=== PATIENT | female | born 1965 | race African-American/Black ===

== ENCOUNTER 2018-02-23 01:54 | Emergency (ER) | payer OTHER ==
[2018-02-23 05:29] VITALS: BP 123/88; PULSE 71; TEMP 98.1; BMI 36.6
--- NOTE | 2018-02-23 06:17 | PDOC ---
History of Present Illness - General Stated Complaint: PAIN,SWELLING,LT HAND Time Seen by Provider: 02/23/18 05:36 History Source: Patient Exam Limitations: No Limitations - History of Present Illness Initial Comments: 02/23/18 06:16 The patient is a 52F who presents with L wrist pain. The patient states that she was walking down the stairs 2 days ago and fell on her outstretched hands bilaterally. She also fell on her knees. She is currently complaining of a L lateral wrist pain and states that she has intermittent numbness in all of her fingertips. She denies any weakness. Past History - Past Medical History Allergies/Adverse Reactions: Allergies Allergy/AdvReac Type Severity Reaction Status Date / Time No Known Allergies Allergy Verified 02/23/18 05:27 COPD: No HTN: Yes - Suicide/Smoking/Psychosocial Hx Smoking History: Never smoked Have you smoked in the past 12 months: No Information on smoking cessation initiated: No Hx Alcohol Use: No Drug/Substance Use Hx: No Substance Use Type: None Review of Systems - Review of Systems Able to Perform ROS?: Yes Comments:: 02/23/18 06:21 GENERAL/CONSTITUTIONAL: No fever or chills. No weakness. CARDIOVASCULAR: No chest pain, palpitations, or lightheadedness. RESPIRATORY: No cough, wheezing, shortness of breath, or hemoptysis. MUSCULOSKELETAL: Positive for L wrist pain and swelling. SKIN: No rash or lesions. NEUROLOGIC: Positive for intermittent numbness in L fingers. No headache, tingling, focal weakness, loss of consciousness, or change in strength/ sensation. Is the patient limited [place]ian proficient: No *Physical Exam - Vital Signs Last Vital Signs Temp Pulse Resp BP Pulse Ox 98.1 F 71 18 123/88 98 02/23/18 05:27 02/23/18 05:27 02/23/18 05:27 02/23/18 05:27 02/23/18 05:27 - Physical Exam Comments: 02/23/18 06:22 GENERAL: Well developed, well nourished. Awake and alert. No acute distress. HEENT: Normocephalic, atraumatic. Hearing grossly normal. Moist mucous membranes. No conjunctival pallor. Sclera are non-icteric. NECK: Supple. Full ROM. No JVD. MUSCULOSKELETAL: Mild swelling, nonpitting, over L wrist. TTP over lateral L wrist. Normal ROM. 2+ radial pulse. Mild weakness in neonatal nurse practitioner strength in L hand. EXTREMITIES: No cyanosis. No clubbing. No edema. No calf tenderness or swelling. SKIN: Warm and dry. Normal capillary refill. No rashes. No jaundice. NEUROLOGICAL: Alert, awake, appropriate. Cranial nerves 2-12 grossly intact. Normal speech. Gait is normal without ataxia. PSYCHIATRIC: Cooperative. Good eye contact. Appropriate mood and affect. Medical Decision Making - Medical Decision Making 02/23/18 06:23 The patient is a 52F who fell on her hand 2 days ago and is complaining of pain and swelling on the lateral aspect of her L hand. Will image hand. Pt states that her pain is under control with motrin which she has been taking. 02/23/18 07:05 Preliminary read of XR negative for acute pathology. Will d/c pt home with ortho f/u as needed. *DC/Admit/Observation/Transfer Diagnosis at time of Disposition: Contusion of wrist, left Qualifiers: Encounter type: initial encounter Qualified Code(s): S60.212A - Contusion of left wrist, initial encounter - Discharge Dispostion Disposition: HOME Condition at time of disposition: Stable Decision to Admit order: No - Referrals Referrals: Lavon Tamez MD [Primary Care Provider] - Juan Vang MD [Staff Physician] - - Patient Instructions Additional Instructions: You were seen for an injury to your left wrist. Your X-ray looked normal. Please keep your hand in the splint for 1 week, rest it, ice it on and off, and elevate it. Take motrin as needed for pain and swelling. Follow up with the orthopedic doctor (Dr. Woody or Dr. Vang) as needed. If you start to develop worsening numbness, tingling, or weakness in your hand, please return to the ER. - Post Discharge Activity
--- NOTE | 2018-02-23 06:49 | PDOC ---
Attending Attestation - Resident Resident Name: MarthaFederico - ED Attending Attestation I have performed the following: I have examined & evaluated the patient, The case was reviewed & discussed with the resident, I agree w/resident's findings & plan - HPI HPI: 02/23/18 06:45 52F who presents with L wrist pain. The patient states that she was walking down the stairs 2 days ago and fell on her outstretched hands and knees.. She is currently complaining of a L lateral wrist and hand pain w/swelling and states that she has intermittent numbness in all of her fingertips. able to ambulate. - Physicial Exam PE: 02/23/18 06:47 General: NAD, well appearing Vascular: 2+ DP pulses symmetric and equal. Focused MSK/Neuro Exam notable for soft compartments, Cap refill <2 sec. left dorsum of hand swelling and tender. no scaphoid tenderness. ROM limited due to pain and swelling. no crepitus. +left ulnar aspect of wrist tender. Proximal and distal strength 5/5, watch caser strength 4/5 in left hand- Plantar flexion and dorsiflexion 5/5. FROM. Sensation grossly intact to light touch. no joint laxity, knee minimally tender, abrasion over right anterior knee Skin: color normal color, warm and well perfused. +abrasion to right knee, - Medical Decision Making 02/23/18 06:46 52F who presents with L wrist pain. The patient states that she was walking down the stairs 2 days ago and fell on her outstretched hands and knees.. She is currently complaining of a L lateral wrist and hand pain w/swelling and states that she has intermittent numbness in all of her fingertips. able to ambulate. DDx hand fx, wrist fx, sprain, contusion XR neg for acute fx or dislocation of left hand/wrist. normal alignment declined meds wrist cock up splint for immobilization and comfort. OTC pain meds, ortho followup as needed. rest ice and elevate. dc in stable condition, impression and plan discussed, agreeable 02/23/18 07:08 02/23/18 07:09
[2018-02-23] MEDS ORDERED: IBUPROFEN 600 MG TABLET (FP) PO ONE ×2 (06:50→07:17)
== END 2018-02-23 07:26 | disposition home or self-care (01) ==
LOC: JER 01:54
PROC: 2W3DX1Z Immobilization of Left Lower Arm using Splint (ICD-10-PCS; principal; 2018-02-23)
DX: S60.212A Contusion of left wrist, initial encounter (principal); W18.39XA Other fall on same level, initial encounter; Y93.89 Activity, other specified; Y92.9 Unspecified place or not applicable; I10 Essential (primary) hypertension
CPT/HCPCS: 73110-TC-LR-FY; 73130-TC-LR-FY; 99281-25